=== PATIENT | female | born 1995 | race Caucasian/White ===

== ENCOUNTER 2022-02-17 19:06 | Emergency (ER) | payer OTHER ==
[~2022-02-17] VITALS: Ht 154.9 cm; Wt 75.3 kg
[2022-02-17 19:29] VITALS: BP 118/60
--- NOTE | 2022-02-17 19:46 | NUR ---
PT TAKEN TO BED 4
[2022-02-17] MEDS ORDERED: NACL 0.9% 1,000 ML IV ONE ×2 (19:50→20:00)
--- NOTE | 2022-02-17 20:01 | NUR ---
Dr. Nova examining patient.
[2022-02-17 20:07] LABS: BASOPHILS % (AUTO) 0.6 % (0.0-2.0); EOSINOPHILS % (AUTO) 0.6 % (0.0-4.0); HEMATOCRIT 44.4 % (36-48); HEMOGLOBIN 14.8 g/dL (12.0-16.0); LYMPHOCYTES # (AUTO) 2.2 K/uL (2.5-16.5); LYMPHOCYTES % (AUTO) 35.9 % (20.5-51.1); MEAN CORPUSCULAR HEMOGLOBIN 27 pg (27-31); MEAN CORPUSCULAR HGB CONC 33 g/dL (33-37); MEAN CORPUSCULAR VOLUME 81.7 fL (80-94); MONOCYTES # (AUTO) 0.5 K/uL (0.8-1.0); MONOCYTES % (AUTO) 7.6 % (1.7-9.3); NEUTROPHILS # (AUTO) 3.5 K/uL (1.8-7.7); NEUTROPHILS % (AUTO) 55.3 % (42.2-75.2); PLATELET COUNT (AUTO) 324 K/uL (140-450); RED BLOOD CELL COUNT(AUTO) 5.44 MIL/uL (4.20-5.40); RED CELL DISTRIBUTION WIDTH 14.6 % (11.6-13.7); WHITE BLOOD COUNT (AUTO) 6.2 K/uL (4.8-10.8)
[2022-02-17 20:54] LABS: ALBUMIN 4.2 g/dL (3.4-5.0); ANION GAP 15.9 (8-16); CARBON DIOXIDE 22.9 mmol/L (21-32); CREATININE 0.7 mg/dL (0.6-1.3); POTASSIUM 3.8 mmol/L (3.5-5.1); TOTAL BILIRUBIN 0.6 mg/dL (0.0-1.0)
[2022-02-17] MEDS ORDERED: INSULIN REGULAR, HUMAN 100 UNIT/ML VIAL SUBQ ONE (21:00)
[2022-02-17] MEDS ORDERED: POTASSIUM CHLORIDE 10 MEQ TABER PO ONE (21:00)
[2022-02-17] MEDS ORDERED: METF-1243 PO (21:02)
[2022-02-17 21:37] VITALS: BP 122/70
--- NOTE | 2022-02-18 16:46 | NUR ---
LATE ENTRY IV NS FLUIDS STARTED AT 2006 ENDED ON 02/17/22 AT 2135.
== END 2022-02-17 21:36 | disposition home or self-care (01) ==
LOC: MED 19:06
DX: E11.65 Type 2 diabetes mellitus with hyperglycemia (principal); R35.89 Other polyuria; R63.1 Polydipsia; Z79.4 Long term (current) use of insulin; Z79.899 Other long term (current) drug therapy
CPT/HCPCS: 36415; 80053; 81002; 81025; 82948; 85025; 96360; 96361; 96372; 99283; J1815; J7030